=== PATIENT | female | born 1955 | race African-American/Black ===

== ENCOUNTER 2017-11-30 09:17 | Outpatient (CLI) | payer BC | END 2017-11-30 09:18 | disposition home or self-care (01) | LOC: BICMAMMO 09:17 | PROVIDERS: ATTEND Family Medicine | DX: Z12.31 Encounter for screening mammogram for malignant neoplasm of breast (principal) | CPT/HCPCS: 77063; 77067 ==

== ENCOUNTER 2017-12-06 09:55 | Outpatient (CLI) | payer BC | END 2017-12-06 09:56 | disposition home or self-care (01) | LOC: BICMAMMO 09:55 | PROVIDERS: ATTEND Family Medicine | DX: N63.23 Unspecified lump in the left breast, lower outer quadrant (principal) | CPT/HCPCS: G0279 ==

== ENCOUNTER 2018-12-05 08:59 | Outpatient (CLI) | payer MEDICARE, BC ==
--- NOTE | 2018-12-05 11:00 | BD ---
Exam: DEXA Bone Density History: Menopause. Lumbar Spine: BMD (g/cm2) L1 0.888 T-Score: -0.9 L2 0.960 T-Score: -0.6 L3 0.839 T-Score: -2.2 L4 0.953 T-Score: -1.0 L1-L4 0.913 T-Score: -1.2 Evidence for osteopenia with increased risk for fracture. Femoral Neck: 0.781 T-Score: -0.6 Total Femur: 0.967 T-Score: +0.2 Impression: FRAX score: Major osteoporotic fracture 3.3%, hip fracture 0.2%. POS: [facility]
--- NOTE | 2018-12-05 11:20 | MMO ---
Bilateral MAMMO Bilat Screen [facility]. CLINICAL HISTORY: Patient is 63 years old and is seen for screening. The patient has no family history of breast cancer. The patient has no personal history of cancer. VIEWS: The views performed were: bilateral craniocaudal with tomosynthesis and bilateral mediolateral oblique with tomosynthesis. FILMS COMPARED: The present examination has been compared to prior imaging studies performed at [facility] on 11/30/2017 and 12/06/2017, and at [facility] on 01/01/2014, 06/11/2014, 08/05/2015 and 11/09/2016. MAMMOGRAM FINDINGS: There are scattered fibroglandular densities. There are stable benign appearing calcifications seen in both breasts. There are no suspicious masses, suspicious calcifications, or new areas of architectural distortion. IMPRESSION: THERE IS NO MAMMOGRAPHIC EVIDENCE OF MALIGNANCY. A ROUTINE FOLLOW-UP MAMMOGRAM IN 1 YEAR IS RECOMMENDED. THE RESULTS OF THIS EXAM WERE SENT TO THE PATIENT. ACR BI-RADS Category 2 - Benign finding MAMMOGRAPHY NOTE: 1. A negative mammogram report should not delay a biopsy if a dominant of clinically suspicious mass is present. 2. Approximately 10% to 15% of breast cancers are not detected by mammography. 3. Adenosis and dense breasts may obscure an underlying neoplasm.
== END 2018-12-05 09:00 | disposition home or self-care (01) ==
LOC: BICMAMMO 08:59
PROVIDERS: ATTEND Family Medicine
DX: Z12.31 Encounter for screening mammogram for malignant neoplasm of breast (principal); Z78.0 Asymptomatic menopausal state; M85.88 Other specified disorders of bone density and structure, other site
CPT/HCPCS: 77063; 77067; 77080

== ENCOUNTER 2019-05-21 08:53 | Outpatient (CLI) | payer MEDICARE, BC ==
--- NOTE | 2019-05-21 09:38 | RAD ---
Frontal and lateral imaging of the thoracic spine: 05/21/2019 COMPARISON: None HISTORY: Mid thoracic spine pain FINDINGS: There is multilevel lateral right-sided thoracic spine osteophyte formation, most prominent at T7-8, T8-9, and T9-10. There is atherosclerotic calcification of the aortic arch. No acute fracture or evidence of dislocation is seen within the thoracic spine. At T7-8, T8-9, and T9-10 there is disc space narrowing with degenerative endplate change and anterior osteophyte formation. IMPRESSION: Multilevel degenerative change within the thoracic spine. No acute osseous abnormality.
== END 2019-05-21 08:54 | disposition home or self-care (01) ==
LOC: SCSRAD 08:53
PROVIDERS: ATTEND Family Medicine
DX: M54.6 Pain in thoracic spine (principal); M47.814 Spondylosis without myelopathy or radiculopathy, thoracic region
CPT/HCPCS: 72072

== ENCOUNTER 2020-02-14 07:59 | Outpatient (CLI) | payer MEDICARE, BC ==
--- NOTE | 2020-02-14 08:54 | MMO ---
Bilateral MAMMO Bilat Screen [facility]. CLINICAL HISTORY: Patient is 65 years old and is seen for screening. The patient has no family history of breast cancer. The patient has no personal history of cancer. VIEWS: The views performed were: bilateral craniocaudal with tomosynthesis and bilateral mediolateral oblique with tomosynthesis. FILMS COMPARED: The present examination has been compared to prior imaging studies performed at [facility] on 11/30/2017, 12/06/2017 and 12/05/2018, and at [facility] on 11/09/2016. This study has been interpreted with the assistance of computer-aided detection. MAMMOGRAM FINDINGS: There are scattered fibroglandular densities. There are stable benign appearing calcifications seen in both breasts. There are no suspicious masses, suspicious calcifications, or new areas of architectural distortion. IMPRESSION: THERE IS NO MAMMOGRAPHIC EVIDENCE OF MALIGNANCY. A ROUTINE FOLLOW-UP MAMMOGRAM IN 1 YEAR IS RECOMMENDED. THE RESULTS OF THIS EXAM WERE SENT TO THE PATIENT. ACR BI-RADS Category 2 - Benign finding MAMMOGRAPHY NOTE: 1. A negative mammogram report should not delay a biopsy if a dominant of clinically suspicious mass is present. 2. Approximately 10% to 15% of breast cancers are not detected by mammography. 3. Adenosis and dense breasts may obscure an underlying neoplasm. Reported by: SNEHAL JOE MD Electonically Signed: [id number]
== END 2020-02-14 08:00 | disposition home or self-care (01) ==
LOC: BICMAMMO 07:59
PROVIDERS: ATTEND Family Medicine
DX: Z12.31 Encounter for screening mammogram for malignant neoplasm of breast (principal)
CPT/HCPCS: 77063; 77067

== ENCOUNTER 2022-03-17 09:33 | Outpatient (CLI) | payer MEDICARE, BC | END 2022-03-17 09:34 | disposition home or self-care (01) | LOC: BICMAMMO 09:33 | PROVIDERS: ATTEND Family Medicine | DX: Z12.31 Encounter for screening mammogram for malignant neoplasm of breast (principal) | CPT/HCPCS: 77063; 77067 ==

== ENCOUNTER 2023-05-04 08:39 | Outpatient (CLI) | payer MEDICARE, BC | END 2023-05-04 08:40 | disposition home or self-care (01) | LOC: BICMAMMO 08:39 | PROVIDERS: ATTEND Family Medicine | DX: Z12.31 Encounter for screening mammogram for malignant neoplasm of breast (principal); Z13.820 Encounter for screening for osteoporosis; M85.89 Other specified disorders of bone density and structure, multiple sites; Z78.0 Asymptomatic menopausal state | CPT/HCPCS: 77063; 77067; 77080 ==

== ENCOUNTER 2023-10-04 15:23 | Outpatient (CLI) | payer MEDICARE | END 2023-10-04 15:24 | disposition home or self-care (01) | LOC: BICULT 15:23 | PROVIDERS: ATTEND Family Medicine | DX: N17.9 Acute kidney failure, unspecified (principal); N28.89 Other specified disorders of kidney and ureter | CPT/HCPCS: 76770 ==

== ENCOUNTER 2025-05-06 09:16 | Outpatient (CLI) | payer MEDICARE | END 2025-05-06 09:17 | disposition home or self-care (01) | LOC: BICMAMMO 09:16 | PROVIDERS: ATTEND Family Medicine | DX: Z12.31 Encounter for screening mammogram for malignant neoplasm of breast (principal); M85.89 Other specified disorders of bone density and structure, multiple sites; Z78.0 Asymptomatic menopausal state | CPT/HCPCS: 77063; 77067; 77080 ==